=== PATIENT | male | born 1975 | race Two or more races ===

== ENCOUNTER 2024-05-13 14:40 | Emergency (ER) | payer OTHER ==
[2024-05-13] MEDS: Ketorolac 60 MG/2 ML SDV IM ONE (16:02)
== END 2024-05-13 17:00 | disposition home or self-care (01) ==
LOC: JD.ED 14:40
DX: M25.561 Pain in right knee (principal); Z88.0 Allergy status to penicillin; Z88.2 Allergy status to sulfonamides
CPT/HCPCS: 73562; 96372; 99283; J1885

== ENCOUNTER 2024-08-04 10:56 | Emergency (ER) | payer MEDICAID, OTHER | END 2024-08-04 11:34 | disposition home or self-care (01) | LOC: JD.ED 10:56 | DX: T23.101A Burn of first degree of right hand, unspecified site, initial encounter (principal); T23.102A Burn of first degree of left hand, unspecified site, initial encounter; I10 Essential (primary) hypertension; Z88.0 Allergy status to penicillin; Z88.2 Allergy status to sulfonamides; Z86.16 Personal history of COVID-19; W40.8XXA Explosion of other specified explosive materials, initial encounter | CPT/HCPCS: 99283 ==

== ENCOUNTER 2024-08-06 18:17 | Emergency (ER) | payer OTHER ==
[2024-08-06] MEDS ORDERED: Diphtheria/Tetanus Toxoids,Adult (Td) 0.5 ML SDV IM ONE (20:40)
[2024-08-06] MEDS: Bacitracin Oint 15 GM Tube TOP SCH (21:00)
[2024-08-06] MEDS: Diphtheria,Pertussis(Acell),Tetanus Vaccine 0.5 ML Syringe ONE (21:00)
== END 2024-08-06 21:00 | disposition home or self-care (01) ==
LOC: JD.ED 18:17
DX: T20.20XA Burn of second degree of head, face, and neck, unspecified site, initial encounter (principal); I10 Essential (primary) hypertension; Z23 Encounter for immunization; Z88.0 Allergy status to penicillin; Z88.2 Allergy status to sulfonamides; X08.8XXA Exposure to other specified smoke, fire and flames, initial encounter; Y93.89 Activity, other specified
CPT/HCPCS: 90471; 90715; 99283; 99283-25; A9270-GY